=== PATIENT | female | born 1990 | race Caucasian/White ===

== ENCOUNTER 2017-07-21 13:34 | Outpatient (CLI) ==
--- NOTE | 2017-07-21 15:24 | US ---
EXAM: Ultrasound chest wall HISTORY: Anterior chest wall nodules COMPARISON: None available TECHNIQUE: Dougherty-scale and color Doppler images FINDINGS: Within the superficial subcutaneous tissues of the anterior chest is a lobular hypoechoic nodule measuring approximately 1 x 0.6 x 0.9 cm. There is suggestion of a linear extension to the sk in surface on image 6. Within the superficial subcutaneous tissues of the anterior chest wall. More inferiorly is a circumscribed anechoic nodule measuring approximately 0.3 x 0.2 x 0.2 cm without int ernal vascularity. IMPRESSION: 1. Possible epidermal inclusion cyst, corresponding to the larger painful area of palpable concern. Clinical follow-up is recommended. 2. Small benign-appearing cystic lesion more inferiorly.
== END 2017-07-21 13:35 | disposition home or self-care (01) ==
LOC: RAD 13:34
PROVIDERS: ATTEND Nurse Practitioner Family
DX: D17.1 Benign lipomatous neoplasm of skin and subcutaneous tissue of trunk (principal); E66.9 Obesity, unspecified
CPT/HCPCS: 36415; 80053; 80061; 84439; 84443; 85025